=== PATIENT | male | born 1995 | race Two or more races ===

== ENCOUNTER 2018-10-24 01:35 | Emergency (ER) | payer SELFPAY ==
[~2018-10-24] VITALS: Ht 177.8 cm; Wt 108.9 kg
[2018-10-24 01:46] VITALS: Ht 177.8 cm; Wt 108.9 kg
[2018-10-24 03:11] VITALS: BP 106/75
== END 2018-10-24 03:11 | disposition home or self-care (01) ==
LOC: ED 01:35
DX: S43.004A Unspecified dislocation of right shoulder joint, initial encounter (principal); X58.XXXA Exposure to other specified factors, initial encounter; Y93.89 Activity, other specified; Y92.89 Other specified places as the place of occurrence of the external cause; Y99.8 Other external cause status
CPT/HCPCS: J2270